=== PATIENT | male | born 1980 | race Caucasian/White ===

== ENCOUNTER 2019-11-14 11:19 | Outpatient (CLI) | payer BC, SELFPAY ==
[2019-11-14 11:41] LABS: Hematocrit 47.5 % (42.0-52.0); Hemoglobin 16.4 g/dL (14.0-18.0); Mean Corpuscular HGB Conc 34.5 g/dl (32-36); Mean Corpuscular Hemoglobin 32.2 pg (26-34); Mean Corpuscular Volume 93.3 fl (80-100); Mean Platelet Volume 9.5 fl (7.4-10.4); Platelet Count Result 265 k/mm3 (150-375); Red Blood Count 5.09 M/mm3 (4.6-6.20); Red Cell Distribution Width 12.5 % (11.5-14.5); White Blood Count 7.8 K/mm3 (4.5-10.0)
[2019-11-14 11:52] LABS: Alanine Aminotransferase 23 U/L (4-50); Blood Urea Nitrogen 10 mg/dL (9-20); Calcium 9.4 mg/dL (8.4-10.2); Carbon Dioxide 25 mmol/L (22-30); Chloride 106 mmol/L (98-107); Cholesterol 185 mg/dL (0-200); Estimated Glomerular Filt Rate > 60; Glucose 93 mg/dL (75-110); HDL Direct 56 mg/dL; Potassium 4.2 mmol/L (3.4-5.0); Sodium 139 mmol/L (137-145); Triglycerides 69 mg/dL (<150)
[2019-11-14 12:03] LABS: LDL Cholesterol Direct 109 mg/dL
== END 2019-11-14 11:20 | disposition home or self-care (01) ==
PROVIDERS: PCP Family Medicine; Visit Provider Family Medicine
DX: E78.00 Pure hypercholesterolemia, unspecified (principal)
CPT/HCPCS: 36415; 80048; 80061; 84460; 85027

== ENCOUNTER 2020-05-16 08:07 | Outpatient (CLI) | payer BC, SELFPAY ==
--- NOTE | ~2020-05-16 | US_ITS ---
EXAMINATION: US renal BI EXAM DATE: 05/16/2020 08:35 INDICATION: R10.9 - Unspecified abdominal pain. TECHNIQUE: Multiple grayscale and Doppler images of the kidneys were obtained (by a technologist who performed the scan) and subsequently reviewed. Comparison is made to prior examination from 06/30/2017. FINDINGS: Right kidney: There is normal contour and echogenicity. It measures 11.6 x 5.2 x 6.1 centimeters. Fo ramsey anechoic lesion consistent with cyst measuring 2 cm. There is no hydronephrosis. Left kidney: There is normal contour and echogenicity. It measures 12.4 x 5.0 x 5.6 centimeters. Th ere are no focal renal lesions identified. There is no hydronephrosis. Bladder unremarkable. IMPRESSION: Small right renal cyst. Otherwise unremarkable kidneys. Reviewed, dictated and finalized at location A. RONMENTAL EPIDEMIOLOGIST
== END 2020-05-16 08:08 ==
PROVIDERS: PCP Internal Medicine; Visit Provider Physician Assistant
DX: R10.9 Unspecified abdominal pain (principal); N28.1 Cyst of kidney, acquired
CPT/HCPCS: 76775

== ENCOUNTER 2020-12-30 19:46 | Emergency (ER) | payer BC, SELFPAY ==
--- NOTE | ~2020-12-30 | XR_ITS ---
EXAMINATION: XR tibia fibula LT 2V DATE: 12/30/2020 22:09 INDICATION: Left calf dog bite. TECHNIQUE: 2 views of left tibia and fibula on 4 radiographs were obtained. COMPARISON: Left foot radiographs 12/21/2016, left knee radiographs 07/30/2014 FINDINGS: Bone alignment is normal. No fracture. There is chronic heterotopic ossification distal to medial malleolus. Joint spaces are normal. No knee joint effusion. There are dystrophic calcification s lateral to distal fibular diaphysis that were present on 12/21/2016. IMPRESSION: 1. No radiopaque foreign body. Reviewed, dictated and finalized at location A.
--- NOTE | ~2020-12-30 | XR_ITS ---
EXAMINATION: XR tibia fibula LT 2V DATE: 12/30/2020 23:11 INDICATION: Left lower leg foreign body. TECHNIQUE: 2 views of left tibia and fibula on 3 radiographs were obtained. COMPARISON: Left foot radiographs 12/21/2016, left knee radiographs 07/30/2014 FINDINGS: Bone alignment is normal. No fracture. There is chronic heterotopic ossification distal to medial malleolus. Joint spaces are normal. There are dystrophic calcifications lateral to distal fibu lar diaphysis that were present on 12/21/2016. IMPRESSION: 1. No radiopaque foreign body. Reviewed, dictated and finalized at location A.
[2020-12-30 20:04] VITALS: BP 129/77; PULSE 68; RESP 14; TEMP 36.9; O2SAT 99
--- NOTE | 2020-12-30 21:55 | ED.ANIMALBIT ---
HPI - Animal Bite General Chief Complaint: Animal Bite Stated Complaint: dog bite Time Seen by Provider: 12/30/20 21:03 Source: patient Mode of arrival: ambulatory Limitations: no limitations History of Present Illness HPI narrative: Patient presents the emergency department for dog bite to the left leg sustained just prior to arrival. Reports he was trying to break up his dogs fighting. Reports he thinks one of the dogs bit his leg. His dogs are up-to-date on their vaccinations. He is up-to-date on tetanus vaccine as well. Denies decreased range of motion or numbness. Related Data Home Medications Medication Instructions Recorded Confirmed pantoprazole 20 mg tablet,delayed 20 mg PO QAM 05/15/20 09/16/20 release alprazolam 12/30/20 Allergies Allergy/AdvReac Type Severity Reaction Status Date / Time azithromycin Allergy Unknown unknown Verified 12/30/20 21:07 Review of Systems Review of Systems: CONSTITUTIONAL: Denies fever SKIN: Reports dog bite MUSCULOSKELETAL: Denies joint pain, or myalgia. NEUROLOGIC: Denies numbness All systems reviewed & are unremarkable except as noted in HPI and below PMFSH Past Medical History Medical History Anxiety Family History Family History Mother Hypertension Depression Thyroid disease Father Patient's father is in good health Cancer Grandparent Diabetes mellitus Heart disease Social History Social History Smoking status: Never smoker Second hand tobacco smoke exposure: No Alcohol intake: current Substance use: never Exam Narrative: GENERAL: Well-appearing, well-nourished, and in no acute distress. HEAD: Normocephalic, atraumatic. EYES: EOMI. EXTREMITIES: Normal range of motion. No edema. Several superficial scratches to the left calf with one small puncture wound. Normal DP pulses. Normal sensation SKIN: Warm, dry, no rash. NEURO: No focal deficits. Alert and oriented x3. PSYCH: Normal mood and affect Course Vital Signs Vital signs: Vital Signs Temperature 98.4 F 12/30/20 20:04 Pulse Rate 68 12/30/20 20:04 Respiratory Rate 14 12/30/20 20:04 Blood Pressure 129/77 12/30/20 20:04 Pulse Oximetry 99 12/30/20 20:04 Temperature 98.4 F 12/30/20 20:04 Pulse Rate 58 L 12/30/20 23:14 Respiratory Rate 16 12/30/20 23:14 Blood Pressure 124/80 12/30/20 23:14 Pulse Oximetry 100 12/30/20 23:14 Procedures Laceration Laceration 1: Date: 12/30/20 Time: 23:28 Site: lower extremity Side (If applicable): left Description: other (Puncture) Pre-repair: wound explored and irrigated extensively ====== Skin Level ====== ====== Subcutaneous Layer ====== ====== Muscle Layer ====== ====== Tendon Layer ====== Dressing: Wounds were irrigated and bandaged MDM - Animal Bite MDM Narrative Medical decision making narrative: Patient presents to the ER for a dog bite to the left leg sustained just prior to arrival. Reports his dog is up to date on vaccinations. He is up to date on tetanus vaccination. His wounds were thoroughly irrigated. Allowed to heal by secondary intention. Patient will be started on oral antibiotics. He was educated on wound care. He was instructed to follow up with his primary care doctor. He was given warnings to return to the ER X-ray did appear to have a possible foreign body. I did not find any foreign bodies on exploration of the puncture wound. We re-did the x-ray and marked where his lacerations were. The foreign body that was noted is distal to his lacerations. This must have been in his leg previously Critical Care Time Critical Care Time Critical Care Time: No Discharge Plan Discharge Clinical Impression: Dog bite Qualifiers: Encounter type: i
[2020-12-30] MEDS: IBUPROFEN 600 MG TABLET PO (22:12)
[2020-12-30 23:14] VITALS: BP 124/80; PULSE 58; RESP 16; O2SAT 100
[2020-12-30 23:41] VITALS: BP 119/87; PULSE 57; RESP 18; O2SAT 99
[2020-12-30] MEDS: AMOXICILLIN/CLAVULANATE K 875-125 MG TAB 1 TABLET PO (23:42)
== END 2020-12-30 23:48 | disposition home or self-care (01) ==
PROVIDERS: Emergency Provider Emergency Medicine; PCP Physician Assistant
DX: S81.852A Open bite, left lower leg, initial encounter (principal); W54.0XXA Bitten by dog, initial encounter; F41.9 Anxiety disorder, unspecified
CPT/HCPCS: 73590; 99283; A9270

== ENCOUNTER → 2021-04-23 02:13 | Outpatient (CLI) | payer BC, SELFPAY ==
[2021-04-24 02:22] LABS: SARS-CoV-2 RNA PCR Positive
== END ==
PROVIDERS: PCP Internal Medicine; Visit Provider Internal Medicine
DX: U07.1 COVID-19 (principal)
CPT/HCPCS: C9803; U0003; U0005

== ENCOUNTER 2021-11-17 19:49 | Emergency (ER) | payer BC, SELFPAY ==
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
[2021-11-17 19:56] VITALS: BP 164/96; PULSE 68; RESP 16; TEMP 36.7; O2SAT 100
== END 2021-11-17 20:10 | disposition home or self-care (01) ==
PROVIDERS: Emergency Provider Nurse Practitioner; PCP Internal Medicine
DX: S00.01XA Abrasion of scalp, initial encounter (principal); Y04.0XXA Assault by unarmed brawl or fight, initial encounter; S09.90XA Unspecified injury of head, initial encounter; F41.9 Anxiety disorder, unspecified
CPT/HCPCS: 99212; G0463

== ENCOUNTER 2023-12-05 16:11 | Emergency (ER) | payer BC, SELFPAY | END 2023-12-05 16:20 | disposition left against medical advice (07) | LOC: ANHED 16:24 | PROVIDERS: PCP Physician Assistant | DX: S61.452A Open bite of left hand, initial encounter (principal); W54.0XXA Bitten by dog, initial encounter | CPT/HCPCS: 99199 ==

== ENCOUNTER 2024-07-06 18:55 | Emergency (ER) | payer BC, SELFPAY ==
--- NOTE | ~2024-07-06 | XR_ITS ---
XR ribs LT 2V w CXR 2V Ordering provider: Danny Hargrove APRN History: . LT rib pain-injury . Comparison: None. FINDINGS: BONES: No acute rib fracture. MEDIASTINUM: The cardiac silhouette is not enlarged. LUNGS: No infiltrates, effusions or pneumothorax. OTHER: No free air under the diaphragm. IMPRESSION: 1. No acute osseous abnormality left ribs and chest. 2. No acute cardiopulmonary findings. Reviewed, dictated and finalized at location A.
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
[2024-07-06 19:06] VITALS: BP 145/88; PULSE 68; RESP 14; TEMP 36.8; O2SAT 100
== END 2024-07-06 19:57 | disposition home or self-care (01) ==
PROVIDERS: Emergency Provider Nurse Practitioner Family; PCP Internal Medicine
DX: R07.89 Other chest pain (principal); F41.9 Anxiety disorder, unspecified; Z86.16 Personal history of COVID-19
CPT/HCPCS: 71046; 71100; 99213; G0463

== ENCOUNTER 2024-07-20 15:31 | Outpatient (CLI) | payer BC, SELFPAY ==
--- NOTE | ~2024-07-20 | XR_ITS ---
[XR ribs LT 2V ] INDICATION: Pleurodynia TECHNIQUE: Frontal projection of the upper left ribs, frontal projection of the lower left ribs, obli que projection of all the left ribs, frontal inspiratory chest x-ray for interpretation. FINDINGS: There are no displaced rib fractures identified. There are no soft tissue abnormality see n. The lungs are clear. IMPRESSION: 1:No acute displaced rib fractures. Reviewed, dictated and finalized at location A.
== END 2024-07-20 15:32 | disposition home or self-care (01) ==
LOC: MICIMG 15:33
PROVIDERS: PCP Nurse Practitioner; Visit Provider Nurse Practitioner
DX: R07.81 Pleurodynia (principal)
CPT/HCPCS: 71100